=== PATIENT | female | born 1980 | race Two or more races ===

== ENCOUNTER 2017-07-24 05:59 | Day surgery (SDC) | payer BC ==
[~2017-07-24 05:59] MED LIST: Buffered Lidocaine 0.9% SYRIN* 5 ML/SYR SYRINGE INTRADERM ONE
[2017-07-24] MEDS ORDERED: Sodium Citrate/Citric Acid* 15 ML UDC PO ONE (06:00)
[2017-07-24] MEDS ORDERED: Sodium Citrate/Citric Acid* 15 ML UDC ONE (06:08)
[2017-07-24] MEDS ORDERED: Buffered Lidocaine 0.9% SYRIN* 5 ML/SYR SYRINGE ONE (06:09)
[2017-07-24] MEDS ORDERED: ceFAZolin 2 GM in 100 MLS NS (*) BAG IVPB ONE (06:09)
[2017-07-24] MEDS ORDERED: Bupivacaine 0.25% SDV* 30 ML ONE (07:14)
[2017-07-24] MEDS ORDERED: Bupivacaine 0.5% SDV PF* 10-30ML VIAL ONE (07:14)
[2017-07-24] MEDS ORDERED: fentaNYL* 50 MCG/ML 2 ML VIAL (100 MCG VIAL) ONE ×2 (07:31→09:39)
[2017-07-24] MEDS ORDERED: Propofol* 10 MG/ML 20 ML BTL IV PUSH ONE (07:31)
[2017-07-24] MEDS ORDERED: Lidocaine 2% PF * 5 ML VIAL ONE (07:39)
[2017-07-24] MEDS ORDERED: Dexamethasone IV* 4 MG/ML 1 ML (4 MG) ONE (07:48)
[2017-07-24] MEDS ORDERED: Ondansetron INJ* 2 MG/ML VIAL IV PRN (07:56)
[2017-07-24] MEDS ORDERED: Naloxone* 0.4 MG/ML 1 ML VIAL IV PRN (07:56)
[2017-07-24] MEDS ORDERED: Ketorolac INJ* 30 MG/ML 1 ML VIAL ONE (08:31)
[2017-07-24] MEDS: fentaNYL* 50 MCG/ML 2 ML VIAL (100 MCG VIAL) IV PRN ×2 (09:40→10:05)
[2017-07-24] MEDS ORDERED: oxyCODONE TAB* 5 MG TAB ONE ×2 (09:53→10:24)
[2017-07-24] MEDS ORDERED: Ondansetron INJ* 2 MG/ML VIAL ONE (09:54)
[2017-07-24 11:10] VITALS: BP 106/63
--- NOTE | 2017-07-24 17:10 | OP ---
Operative Report - Blank - Operative Report Date of Operation: 07/24/17 Note: PATIENT: Jaimee Angel DATE OF : 84 DATE OF SURGERY: 07/24/17 SURGEON: Leo Ramirez MD [facility] CONSULTANT: SHOSHANA Adkins , whos assistance was necessary for positioning, retraction, help with instrumentation, and closure. ANESTHESIOLOGIST: Dr. Awad PREOPERATIVE DIAGNOSIS: 1. Right ankle post-traumatic arthritis 2. Right ankle anterior impingement 3. Right ankle synovitis 4. Right distal tibia osteophytes 5. Right talar osteophytes 6. Painful deep right ankle hardware POSTOPERATIVE DIAGNOSIS: 1. Right ankle post-traumatic arthritis 2. Right ankle anterior impingement 3. Right ankle synovitis 4. Right distal tibia osteophytes 5. Right talar osteophytes 6. Painful deep right ankle hardware OPERATION: 1. Right ankle arthroscopy with extensive debridement. 2. Saucerization of tibia 3. Saucerization of talus 4. Right ankle removal of deep hardware ANESTHESIA: GETA IMPLANTS: none TOURNIQUET TIME: Less than 2 hours with a well-padded thigh tourniquet at 250 mmHg SPECIMENS: none ESTIMATED BLOOD LOSS: minimal COMPLICATIONS: none STATUS: Stable from the operating room to the recovery room and then home. INDICATIONS FOR PROCEDURE: Jaimee previously sustained a right ankle fracture. She has painful and prominent hardware, has developed posttraumatic arthritis, and has anterior ankle impingement. Both operative and non operative treatment alternatives were reviewed. Further, the nature and risks of surgery were reviewed in careful detail, in the office as well as the pre-operative holding area. Our discussions regarding the risks of surgery included, but were not limited to, infection, wound problems, nerve injury, neuroma, RSD, persistent symptoms, blood clot, failure of the surgery, and even the remote chance of catastrophic complication, including loss of limb. DESCRIPTION OF PROCEDURE: The patient was seen in the preoperative holding unit and informed written consent was obtained. The appropriate extremity was marked. The patient was then brought to the operating room and carefully positioned on the operating room table. Anesthesia was induced. All bony prominences were padded with great care. A well-padded thigh tourniquet was placed. A chlorhexidine based pre- scrub was performed followed by a chloraprep prep and drape in standard sterile fashion. A surgical safety pause was then conducted in which we confirmed the appropriate patient, extremity, planned procedure, availability of equipment, indication and administration of prophylactic antibiotics, and DVT prophylaxis in the form of a compression boot on the non-surgical extremity. An Esmarch exsanguination of the limb was then performed and the tourniquet inflated. The leg was positioned in the noninvasive ankle arthroscopy leg jimenez setup. I began by establishing the anteromedial portal. I utilized a spinal needle for this. Great care was taken to protect the superficial neurovascular structures. Under direct visualization, I then established an anterolateral portal. Great care was taken to protect the superficial peroneal nerve. I utilized the full radius shaver to remove a considerable amount of synovitis from the anterior aspect of the ankle joint. This was carefully removed to give a nice view of the ankle joint. She had high-grade degenerative changes of both the tibial plafond and talar dome. There were some loose cartilage flaps which were debrided. At this point, an approximately 4 cm incision was made longitudinally at the anterior medial ankle joint. I carefully dissected down to the level of the periosteum and then dissected across the anterior distal tibia and talar neck in a subperiosteal fashion. This exposed the large osteophytes on both the distal tibia and the talar neck. A half-inch osteotome and rongeur were used to saucerize the distal tibia. A quarter inch osteotome and rongeur were then used to saucerize the talar neck. This allowed for much improved motion of the ankle joint. There was no longer bony impingement with ankle dorsiflexion. I then turned my attention to the lateral hardware. The prior lateral incision from her ankle fracture surgery was utilized and I dissected down to the level of the hardware, taking great care to avoid the superficial peroneal nerve, which was not visualized. . The screws and plate were then removed and any bony prominences were smoothed with a Rongeur and rasp. Fluoroscopy was then utilized to confirm removal of all of the hardware, as well as appropriate saucerization of the tibia and talus. The wounds were then copiously irrigated and closed in a layered fashion utilizing 3-0 Monocryl and 3 -0 nylon. At this point, a sterile dressing was applied and the ankle was splinted in a neutral position. The patient was then awakened from anesthesia and transferred to the recovery room in stable condition. There were no complications. All needle and sponge counts were correct at the end of the case. ATTESTATION: I attest I was present and scrubbed and performed the critical portions of the procedure myself. POSTOPERATIVE PLAN: The patient will remain nonweightbearing for an anticipated duration of 2 weeks. Follow up will be in two weeks for likely suture removal, Steri-Strip application and transition into a tall Aircast boot.
--- NOTE | 2017-07-25 07:16 | RAD ---
INDICATION: Possible open decompression and removal of hardware. COMPARISON: Correlation is made with a prior x-ray study of the lateral right ankle from April 21, 2017. TECHNIQUE: 15.9 seconds of intermittent fluoroscopic guidance were provided and 7 spot films of the right ankle were obtained in the operating room. FINDINGS: The films demonstrate interval movable of the surgical hardware noted on the prior study. IMPRESSION: INTRAOPERATIVE CONTROL FILMS. CPT II Codes: 6045F
== END 2017-07-24 11:10 | disposition home or self-care (01) ==
LOC: OR 05:59
PROVIDERS: ATTEND Orthopaedic Surgery
DX: M19.171 Post-traumatic osteoarthritis, right ankle and foot (principal); T84.84XA Pain due to internal orthopedic prosthetic devices, implants and grafts, initial encounter; Y83.1 Surgical operation with implant of artificial internal device as the cause of abnormal reaction of the patient, or of later complication, without mention of misadventure at the time of the procedure; M25.871 Other specified joint disorders, right ankle and foot; M65.871 Other synovitis and tenosynovitis, right ankle and foot; M25.771 Osteophyte, right ankle; F17.210 Nicotine dependence, cigarettes, uncomplicated
CPT/HCPCS: 76001; 81025; 88300; A9270-GY; J1100; J1885; J2405; J2704; J3010